=== PATIENT | male | born 1940 | race Caucasian/White ===

== ENCOUNTER 2018-11-15 07:11 | Inpatient (IN) | payer MEDICARE, OTHER ==
[2018-11-15 09:10] LABS: #Eosinphils 0.1 thou/uL (0.0-0.7); #Monocytes 0.9 thou/uL (0.11-0.59); #Neutrophils 8.5 thou/uL (1.40-6.50); %Basophils 0.3 % (0.0-1.0); %Eosinophils 0.7 % (0.0-10.0); %Lymphocytes 9.4 % (21.0-51.0); %Monocytes 8.1 % (0.0-10.0); %Neutrophils 81.5 % (42.0-75.0); Hemoglobin 14.7 g/dL (14.0-18.0); Mean Corpuscular HGB CONC 33.5 g/dL (32.0-36.0); Mean Corpuscular Hemoglobin 31.4 pg (27.0-31.0); Mean Corpuscular Volume 93.7 fL (78.0-98.0); Mean Platelet Volume 6.3 fL (7.4-10.4); Platelet Count 444 thou/uL (130-400); RBC Distribution Width 11.5 % (11.5-14.5); Red Blood Cell (RBC) Count 4.69 mill/uL (4.70-6.10); White Blood Cell (WBC) Count 10.4 thou/uL (4.8-10.8)
[2018-11-15] MEDS ORDERED: CEFAZOLIN 2 GM/50 ML BAG ONE (09:12)
[2018-11-15 09:29] LABS: Anion Gap 14 mmol/L (10-20); BUN (Urea Nitrogen) 15 mg/dL (8.4-25.7); Calc. Creatinine Clearance 73 mL/min (70-130); Calcium 9.4 mg/dL (7.8-10.44); Carbon Dioxide 29 mmol/L (23-31); Chloride 99 mmol/L (98-107); Estimated GFR-MDRD 74; Glucose 132 mg/dL (83-110); Potassium 3.9 mmol/L (3.5-5.1); Sodium 138 mmol/L (136-145)
[2018-11-15] MEDS ORDERED: Sodium Chloride 0.9% 10 ML ONE (10:53)
[2018-11-15] MEDS ORDERED: Fentanyl 100 MCG/2 ML VIAL ONE ×4 (11:09→13:54)
[2018-11-15] MEDS ORDERED: KETAMINE 100 MG/ML (5ML VIAL) ONE (11:29)
--- NOTE | 2018-11-15 12:54 | OP ---
DATE OF PROCEDURE: 11/15/2018 RETICLE PRINTER: Jonathon. PROCEDURES PERFORMED: Right L5-S1 laminectomy, facetectomy, and foraminotomy, posterolateral arthrodesis L5-S1, pedicle screw instrumentation, demineralized bone matrix, and local morselized autograft. DESCRIPTION OF PROCEDURE: The patient was brought to the operating room and intubated. He was rolled in the prone position on gel-filled chest rolls. An incision was made exposing L5 and S1 and the level was confirmed by x-ray. We performed a right L5-S1 laminectomy, facetectomy, and foraminotomy, and completely decompressed the right L5 neural foramen. We next placed pedicle screws at L5 and S1 bilaterally using lateral fluoroscopic guidance. Distraction was placed between the screws, connected by rods, which were connected by nuts. The wound was then extensively irrigated and maximum hemostasis was secured. A combination of demineralized bone matrix and local morselized autograft was laid over the lamina and posterolateral surfaces for the purpose of arthrodesis. Vancomycin powder was applied and the wound was then closed in anatomic layers. Job ID: [id number] [facility]
[2018-11-15] MEDS ORDERED: diphenhydrAMINE 25 MG CAP PO PRN (13:15)
[2018-11-15] MEDS ORDERED: traMADol HCl 50 MG TAB PO PRN ×2 (13:15)
[2018-11-15] MEDS ORDERED: Ondansetron PF 4 MG/2 ML Vial IM PRN (13:15)
[2018-11-15] MEDS ORDERED: Milk Of Magnesia 30 ML UDCUP PO PRN (13:15)
[2018-11-15] MEDS ORDERED: diphenhydrAMINE 50 MG/ML VIAL IVP PRN (13:15)
[2018-11-15] MEDS ORDERED: Mag-Al 1200 mg/1200 mg/30 ML UDCUP PO PRN (13:15)
[2018-11-15] MEDS ORDERED: Morphine 4 MG/ML VIAL SLOW IVP PRN ×2 (13:15→13:18)
[2018-11-15] MEDS ORDERED: Promethazine 25 MG TAB PO PRN (13:15)
[2018-11-15] MEDS ORDERED: Promethazine HCl 12.5 MG SUPP PR PRN (13:15)
[2018-11-15] MEDS ORDERED: Promethazine HCl 25 MG/ML VIAL IM PRN ×2 (13:15→13:30)
[2018-11-15] MEDS ORDERED: Acetaminophen/Codeine 30-300mg Tablet PO PRN (13:20)
[2018-11-15] MEDS ORDERED: Ondansetron HCl/PF 4 MG/2 ML Vial IVP PRN (13:30)
[2018-11-15] MEDS ORDERED: Promethazine HCl 25 MG/ML VIAL SLOW IVP PRN (13:30)
[2018-11-15] MEDS ORDERED: HYDROmorphone 2 MG/ML VIAL ONE (14:04)
[2018-11-15] MEDS ORDERED: Lidocaine 1% PF 5 ML VIAL ONE (15:08)
[2018-11-15] MEDS ORDERED: Glycopyrrolate 0.2 MG/ML 5 ML SYRINGE ONE (15:08)
[2018-11-15] MEDS ORDERED: PHENYLEPHRINE-NS 100 MCG/ML 10 ML SYRINGE ONE (15:08)
[2018-11-15] MEDS ORDERED: PROPOFOL 200 MG/20 ML VIAL ONE (15:08)
[2018-11-15] MEDS ORDERED: Ketorolac Tromethamine 30 MG/ML VIAL ONE (15:08)
[2018-11-15] MEDS ORDERED: Ondansetron PF 4 MG/2 ML Vial ONE (15:08)
[2018-11-15] MEDS ORDERED: Dexamethasone 20 MG/5 ML VIAL ONE (15:08)
[2018-11-15 16:17] VITALS: BMI 24.4
[2018-11-15] MEDS: Gabapentin 300 MG CAP PO SCH ×2 (17:00→20:34)
[2018-11-15] MEDS: CEFAZOLIN 2 GM/50 ML-DEXTROSE 2 GM in Premix Bag 1 BAG IVPB SCH (17:00)
[2018-11-15] MEDS: Sodium Chloride 0.9% 1,000 ML IV SCH (17:01)
--- NOTE | 2018-11-15 17:13 | EKG ---
Test Reason : PREOP Blood Pressure : / mmHG Vent. Rate : 075 BPM Atrial Rate : 075 BPM P-R Int : 142 ms QRS Dur : 096 ms QT Int : 418 ms P-R-T Axes : 070 067 023 degrees QTc Int : 466 ms Normal sinus rhythm Normal ECG When compared with ECG of 26-FEB-2011 15:20, QT has lengthened Confirmed by DR. Sunshine DRISCOLL ([id number]) on 11/15/2018 5:12:42 PM Referred By: PB Confirmed By:DR. Sunshine DRISCOLL
[2018-11-15] MEDS ORDERED: Senokot 8.6 MG TAB PO PRN (17:35)
[2018-11-15] MEDS ORDERED: [UNRECOGNIZED DRUG - OTHER] TOP SCH (18:15)
[2018-11-15] MEDS: Docusate 100 MG CAP PO SCH (20:34)
[2018-11-15] MEDS: guaiFENesin/DM ER PO SCH ×2 (20:35→20:36)
[2018-11-15] MEDS: Atorvastatin Calcium 40 MG TAB PO SCH (20:35)
[2018-11-15] MEDS: HYDROcodone/Acetaminophen 10/325 mg Tablet PO PRN (22:26)
[2018-11-15] MEDS: tiZANidine HCl 4 MG TAB PO PRN (22:26)
[2018-11-16] MEDS: CEFAZOLIN 2 GM/50 ML-DEXTROSE 2 GM in Premix Bag 1 BAG IVPB SCH
--- NOTE | 2018-11-16 00:31 | CON ---
DATE OF CONSULTATION: PRIMARY CARE PHYSICIAN: Dr. Mi. ADMITTING TEAM: Neurosurgery, Dr. Pineda. REASON FOR CONSULTATION: Medical management. HISTORY OF PRESENT ILLNESS: This is a 78-year-old white male with a history of low back pain progressing into right-sided sciatica over the last 3 months. This had progressed to where the patient was not able to sit at all for the last couple of months and it got severely worst just after Keisha and so the patient was seen at [facility] on November 07. He was treated for his pain and discharged, but it came right back and was eventually admitted on the to the hospital there. While in the hospital, he was diagnosed with pneumonia and treated with Levaquin, and he had multiple pain management regimens attempted. Eventually, he was able to be mildly controlled with fentanyl patch and some oral medications, and he was discharged on the to follow up with Dr. Pineda for a scheduled lumbar decompression today. The patient had his right-sided L5 through S1 laminectomy, facetectomy, foraminotomy, and posterolateral arthrodesis at L5 through S1 with screws placed and an autograft by Dr. Pineda. He is postoperative and is doing much better. He states he still has some pain in his back, but no more pain running down his right leg. The patient reports that he was very nauseated prior to coming in this morning, but that has resolved now as well. He also experienced significant constipation during his last hospitalization due to the morphine and other pain medications; this has eventually resolved and he has had soft bowel movements for the last couple of days. The patient reports that he had some fever and cough during his previous hospitalization. The fever has resolved; his cough has improved, though he had a good bit this morning when he woke up. Overall, he has been feeling much better. PAST MEDICAL HISTORY: 1. Hypertension. 2. Hyperlipidemia. 3. Gastroesophageal reflux disease. 4. Lumbar radiculopathy. PAST SURGICAL HISTORY: 1. Left torn rotator cuff surgery. 2. Left foot surgery for a Lisfranc fracture. 3. Lumbar decompression surgery today. SOCIAL HISTORY: The patient is . He smoked until 1986 and he has dip tobacco ever since; he uses a can about every 3 days. No regular alcohol use. FAMILY HISTORY: Positive for diabetes in his father and multiple family members with back problems. ALLERGIES: NO KNOWN DRUG ALLERGIES. CURRENT MEDICATIONS: 1. Tylenol With Codeine No. 3 as needed. 2. Amlodipine 10 mg daily. 3. Diclofenac 75 mg twice a day. 4. Fentanyl patch 75 mcg q.3 days; he has this in place right now, it was placed about 3 days ago. 5. Gabapentin 300 mg 3 times a day. 6. Mucinex DM 1 tablet every 12 hours. 7. Levofloxacin 500 mg daily. 8. Lisinopril 5 mg daily. 9. Omeprazole 40 mg daily. 10. Simvastatin 80 mg at night. 11. Tramadol 50 mg as needed. REVIEW OF SYSTEMS: CONSTITUTIONAL: No current fevers. See HPI. No weight changes. EYES: No double vision or blurred vision. 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 ENT: No congestion, drainage or sore throat currently. CARDIOVASCULAR: No chest pain. No palpitations or racing heart. PULMONARY: Coughing has markedly improved. No wheezing or chest tightness. No dyspnea. GASTROINTESTINAL: Nausea earlier, now resolved. No vomiting. No current constipation, though he has gotten constipated easily with pain medication, but no diarrhea. GENITOURINARY: No dysuria or hematuria. He does report some difficulty urinating ever since getting on all the medications. He is able to void after standing for a while just before I came into the room. MUSCULOSKELETAL: See HPI. SKIN: No rashes or other lesions are noted. NEUROLOGIC: He had a little bit of tingling in his right leg earlier that has gone now and he has occasional weakness in the right leg with activity ever since he started having the sciatica. PHYSICAL EXAMINATION: VITAL SIGNS: Blood pressure 167/74, pulse 66, respirations 18, temperature 98.0, O2 saturation 96% on room air. GENERAL: This is a well-developed, well-nourished white male, in no apparent distress. HEENT: Pupils are equal, round, and reactive to light. Oropharynx is clear without lesions, erythema, or exudate. NECK: Supple. No adenopathy. No thyroid nodules or enlargement. No JVD. HEART: Regular rate and rhythm. No murmurs, rubs, or gallops. LUNGS: Clear to auscultation bilaterally. No wheezes, crackles, or rhonchi. ABDOMEN: Soft, nontender to palpation. Normoactive bowel sounds. No hepatosplenomegaly or other masses. EXTREMITIES: No clubbing, cyanosis, or edema. SKIN: No rashes or other lesions noted. NEUROLOGIC: He has intact sensation in all extremities. Normal reflexes. No facial droop. PSYCHIATRIC: Alert and oriented x3. Normal mood and affect. LABORATORY DATA: CBC within normal limits. Basic metabolic panel within normal limits. ASSESSMENT: 1. Lumbar radiculopathy, status post decompression surgery by Dr. Pineda. 2. Pneumonia. Today is his 7th day of antibiotics. We can give him a single dose of Levaquin today and then will we will discontinue. 3. Hypertension. We will resume the patient's home blood pressure medications. 4. Gastroesophageal reflux disease. We will resume PPI. 5. Hyperlipidemia. We will resume the patient's statin. 6. Deep venous thrombosis prophylaxis. We will put the patient on SCDs while in bed. 7. Code status: I did discuss this with the patient; he is a full code. Should he be incapacitated, his would be his medical decision maker; her name is Yael Rahman. Job ID: [id number]
[2018-11-16] MEDS: HYDROcodone/Acetaminophen 10/325 mg Tablet PO PRN ×2 (07:26→11:50)
[2018-11-16] MEDS: tiZANidine HCl 4 MG TAB PO PRN (07:26)
--- NOTE | 2018-11-16 07:38 | PRG ---
DATE OF SERVICE: 11/16/2018 SUBJECTIVE: The patient is a 78-year-old male, status post L5-S1 decompression and fusion. Following surgery, he was transitioned to the Med/Surg Floor, where his pain was well controlled with p.o. medications, he does still have an element of right L5 radiculopathy, but he does report this is better than before surgery. No complaints of weakness. He reports he is voiding appropriately and is ambulated short distance, just to the bathroom a few times. No incisional drainage issues. The patient is sitting in the bed comfortably, in no acute distress. Awake, alert, and oriented x4. Free active range of motion of all extremities. No focal motor weakness or reflex asymmetry. Negative straight leg raise. Sensation intact to light touch. We will plan to continue to mobilize the patient today with assistance of Physical Therapy, also to continue to work on pain control and advancing the patient's diet. Upon initially, they were considering inpatient rehabilitation. At discharge, the patient is doing very well and we will have him work with PT again. I anticipate he may be able to go with Home Health in the next day or two. Job ID: [id number]
[2018-11-16] MEDS: Sodium Chloride 0.9% 1,000 ML IV SCH (09:09)
[2018-11-16] MEDS: Amlodipine 10 MG TAB PO SCH (09:10)
[2018-11-16] MEDS: guaiFENesin/DM ER PO SCH ×2 (09:11→20:40)
[2018-11-16] MEDS: Gabapentin 300 MG CAP PO SCH ×3 (09:11→20:40)
[2018-11-16] MEDS: Lisinopril 5 MG TAB PO SCH (09:11)
[2018-11-16] MEDS: Docusate 100 MG CAP PO SCH ×2 (09:11→20:40)
--- NOTE | 2018-11-16 11:55 | PDOC.EVN ---
Event Note - Event Note Event Note: received sign out from Sound team, will see patient for medical management
--- NOTE | 2018-11-16 12:16 | PDOC.FM ---
- Subjective Subjective: Today patient states he is feeling well better overall. Pain in the r leg is much improved from before surgery. He states he has some pain at the incision site, rates it at 5/10. He was able to walk twice around the 3rd floor. He has been eating and drinking without difficultly. He denies cough, sob, fevers, chills, or sweats. He is quite thankful to have had the surgery and looking forward to continued therapy. - Objective Vital Signs & Weight: Vital Signs (12 hours) Temp Pulse Resp BP BP Pulse Ox 11/16/18 11:55 98.7 F 88 12 138/64 98 11/16/18 09:11 71 166/77 H 11/16/18 09:10 71 166/77 H 11/16/18 07:35 98.6 F 71 12 166/77 H 96 11/16/18 03:42 99.2 F 75 18 117/66 96 Weight Weight 79.515 kg Result Diagrams: 11/15/18 08:59 11/15/18 08:59 Phys Exam - Physical Examination Constitutional: NAD HEENT: PERRLA, moist MMs Neck: no nodes, full ROM Respiratory: no wheezing, clear to auscultation bilateral Cardiovascular: RRR, no significant murmur Gastrointestinal: soft, non-tender, no distention, positive bowel sounds Musculoskeletal: no edema, pulses present Neurological: non-focal, moves all 4 limbs hospitality ambassador strength equal 5/5, able to raise both legs off bed, sensation intact equal 5/5 plantar flexion Psychiatric: normal affect, A&O x 3 Skin: no rash, cap refill <2 seconds Dx/Plan (1) HTN (hypertension) Code(s): I10 - ESSENTIAL (PRIMARY) HYPERTENSION Status: Acute (2) HLD (hyperlipidemia) Code(s): E78.5 - HYPERLIPIDEMIA, UNSPECIFIED Status: Acute (3) GERD (gastroesophageal reflux disease) Code(s): K21.9 - GASTRO-ESOPHAGEAL REFLUX DISEASE WITHOUT ESOPHAGITIS Status: Acute (4) Lumbar radiculopathy Code(s): M54.16 - RADICULOPATHY, LUMBAR REGION Status: Acute - Plan Plan: # Lumbar Radiculopathy s/p lumbar decompression - POD 1 - pain well-controlled - PT/OT # Pneumonia - s/p 7 days levoquin - no cough, sob, fever # HTN - home meds # HLD - home meds Code: full Fluids: tko Diet: regular Dispo: 1-2 days, anticipate rehab DVT PPx: SCDs Addendum - Attending - Attending Attestation Date/Time: 11/16/18 7625 I personally evaluated the patient and discussed the management with Dr. Dave I agree with the History, Examination, Assessment and Plan documented above with any addition or exceptions noted below. 78 yo male admitted for spinal decompression. POD#1 HD#2 He reports he is doing much better. Reports pain in controlled. Excited to eat today. Able to participate in physical therapy today. PMHX, SxHX, FamHX, SoHX, allergies, and home medications reviewed with patient and at bedside. ROS 9 point negative. VS reviewed. Labs reviewed. NAD. Laying in bed. EMOI. PERRL. AAO x4. MMM. Supple. No LAD. Nonpalpable thyroid. RRR. No murmurs. CTA bilaterally but patient not able sit up comfortably in bed for full lung exam. NT/ND. BS present. No guarding. FROM. No c/c/e x4 5/5 strength x 4. Gross sensation intact. CN II - XII intact. 1. s/p spinal decompression: Management per neurosurg. Would add bowel regiment due to use of narcotics for pain control. 2. HTN: Home meds restarted. Occasional severe range BPs but average normotensive. Continue to monitor. Adjust home meds as needed. 3. HLD: Continue home meds. 4. hx of GERD: H2 jacque as needed. PPI if not improved. Monitor NSAID use. 5. DVT ppx: Lovenox, ambulation, SCDs Dispo: Continue to monitor and follow alongside neuro ABrayMD
[2018-11-16] MEDS: Atorvastatin Calcium 40 MG TAB PO SCH (20:40)
[2018-11-16] MEDS: Acetaminophen/Codeine 30-300mg Tablet PO PRN (20:49)
[2018-11-17] MEDS: HYDROcodone/Acetaminophen 10/325 mg Tablet PO PRN ×3 (04:49→14:39)
--- NOTE | 2018-11-17 06:40 | PDOC.FM ---
- Subjective Subjective: This mornign patient states he is having mild pain at incision site, as well as some pain radiating down his R leg. Pain is less than before the surgery. Patient was able to walk around 3rd floor x2 yesterday. Denies sob, cough, fevers, chills, sweats, N/V/D. - Objective Vital Signs & Weight: Vital Signs (12 hours) Temp Pulse Resp BP Pulse Ox 11/17/18 04:00 99 F 70 19 143/80 H 97 11/17/18 00:00 99.7 F H 85 19 131/68 95 11/16/18 20:40 98 11/16/18 20:00 98.9 F 84 20 144/68 H 98 Weight Weight 79.515 kg I&O: 11/15/18 11/16/18 11/17/18 06:59 06:59 06:59 Intake Total 2130 Output Total 550 Balance 1580 Result Diagrams: 11/15/18 08:59 11/15/18 08:59 Phys Exam - Physical Examination Constitutional: NAD HEENT: PERRLA, moist MMs Respiratory: no wheezing, clear to auscultation bilateral Cardiovascular: RRR, no significant murmur Gastrointestinal: soft, non-tender, no distention, positive bowel sounds Musculoskeletal: no edema, edema present Neurological: non-focal, moves all 4 limbs 5/5 plantar flexion bilaterally Psychiatric: normal affect, A&O x 3 Skin: no rash, cap refill <2 seconds Dx/Plan (1) HTN (hypertension) Code(s): I10 - ESSENTIAL (PRIMARY) HYPERTENSION Status: Acute (2) HLD (hyperlipidemia) Code(s): E78.5 - HYPERLIPIDEMIA, UNSPECIFIED Status: Acute (3) GERD (gastroesophageal reflux disease) Code(s): K21.9 - GASTRO-ESOPHAGEAL REFLUX DISEASE WITHOUT ESOPHAGITIS Status: Acute (4) Lumbar radiculopathy Code(s): M54.16 - RADICULOPATHY, LUMBAR REGION Status: Acute - Plan Plan: # Lumbar Radiculopathy s/p lumbar decompression - POD 2 - pain well-controlled - PT/OT # Pneumonia - s/p 7 days levoquin - no cough, sob, fever # HTN - home meds - mildly elevated overnight to 140s systolic, will hold off on adjustments for now # HLD - home meds Code: full Fluids: tko Diet: regular Dispo: 1-2 days, anticipate rehab DVT PPx: SCDs Addendum - Attending - Attending Attestation Date/Time: 11/17/18 1021 I personally evaluated the patient and discussed the management with Dr. Dave. I agree with the History, Examination, Assessment and Plan documented above with any addition or exceptions noted below. Patient here s/p spinal decompression with NSGY. We are consulted for medical mgmt. BP well controlled on current meds, will adjust as necessary. Continue to follow and make recommendations as needed. Continue PT and dispo per the primary team.
[2018-11-17] MEDS: Docusate 100 MG CAP PO SCH ×2 (08:55→21:23)
[2018-11-17] MEDS: guaiFENesin/DM ER PO SCH ×2 (08:56→21:23)
[2018-11-17] MEDS: Gabapentin 300 MG CAP PO SCH ×3 (08:56→21:23)
[2018-11-17] MEDS: Lisinopril 5 MG TAB PO SCH (08:56)
[2018-11-17] MEDS: Amlodipine 10 MG TAB PO SCH (08:57)
[2018-11-17] MEDS: Acetaminophen/Codeine 30-300mg Tablet PO PRN (21:23)
[2018-11-17] MEDS: Atorvastatin Calcium 40 MG TAB PO SCH (21:23)
[2018-11-18] MEDS: HYDROcodone/Acetaminophen 10/325 mg Tablet PO PRN ×2 (06:13→11:36)
--- NOTE | 2018-11-18 06:56 | PDOC.FM ---
- Subjective Subjective: This morning patient states he is having some increased pain in the right leg. He was able to walk all the way around 3rd floor without issues. He has more pain when laying down than walking, walking actually relieves the pain. Pain is well-managed with norco. Patient states he is ready to go to [place] for swingbed care. - Objective Vital Signs & Weight: Vital Signs (12 hours) Temp Pulse Resp BP Pulse Ox 11/18/18 04:00 97.5 F L 56 L 17 119/68 95 11/18/18 00:00 98.8 F 63 19 136/73 96 11/17/18 20:33 96 11/17/18 20:00 99.4 F 71 20 123/71 97 Weight Weight 79.515 kg I&O: 11/16/18 11/17/18 11/18/18 06:59 06:59 06:59 Intake Total 2130 1200 Output Total 550 Balance 1580 1200 Result Diagrams: 11/15/18 08:59 11/15/18 08:59 Phys Exam - Physical Examination Constitutional: NAD HEENT: PERRLA Respiratory: no wheezing, clear to auscultation bilateral Cardiovascular: RRR, no significant murmur Gastrointestinal: soft, non-tender, no distention, positive bowel sounds Musculoskeletal: no edema, pulses present Neurological: non-focal, moves all 4 limbs Psychiatric: normal affect, A&O x 3 Skin: no rash, cap refill <2 seconds Dx/Plan (1) HTN (hypertension) Code(s): I10 - ESSENTIAL (PRIMARY) HYPERTENSION Status: Acute (2) HLD (hyperlipidemia) Code(s): E78.5 - HYPERLIPIDEMIA, UNSPECIFIED Status: Acute (3) GERD (gastroesophageal reflux disease) Code(s): K21.9 - GASTRO-ESOPHAGEAL REFLUX DISEASE WITHOUT ESOPHAGITIS Status: Acute (4) Lumbar radiculopathy Code(s): M54.16 - RADICULOPATHY, LUMBAR REGION Status: Acute - Plan Plan: # Lumbar Radiculopathy s/p lumbar decompression - POD 3 - pain well-controlled - PT/OT # Pneumonia - s/p 7 days levoquin - no cough, sob, fever # HTN - home meds - WNL overnight # HLD - home meds Code: full Fluids: tko Diet: regular Dispo: plans to go to [facility] for swingbed today per patient DVT PPx: SCDs Addendum - Attending - Attending Attestation Date/Time: 11/18/18 2440 I personally evaluated the patient and discussed the management with Dr. Dave. I agree with the History, Examination, Assessment and Plan documented above with any addition or exceptions noted below. Patient seen as consult for med mgmt. Doing well and BP stable. Dispo per primary team.
[2018-11-18 08:26] VITALS: BP 147/79; TEMP 98.1
[2018-11-18] MEDS: Lisinopril 5 MG TAB PO SCH (08:55)
[2018-11-18] MEDS: Amlodipine 10 MG TAB PO SCH (08:55)
[2018-11-18] MEDS: Gabapentin 300 MG CAP PO SCH (08:55)
[2018-11-18] MEDS: Docusate 100 MG CAP PO SCH (08:55)
[2018-11-18] MEDS: guaiFENesin/DM ER PO SCH (08:55)
--- NOTE | 2018-11-18 12:57 | DIS ---
DATE OF ADMISSION: 11/15/2018 DATE OF DISCHARGE: 11/18/2018 HOSPITAL COURSE: The patient is a 78-year-old male, status post L5 to S1 decompression and fusion. Following the surgery, he was transitioned to the Med/Surg floor, where his pain has been well controlled with p.o. medications, he has been tolerating a regular diet, and voiding appropriately. He has been up and ambulating with the assistance of Physical Therapy and the nursing staff. He has some intermittent right leg radicular pain, which is well controlled with medication, then appears to be improving with time. This morning, the patient is sitting up. He is awake, alert, in no acute distress. He has free active range of motion of all extremities. 5/5 strength throughout. Normal reflexes throughout. He has a negative straight leg raise on the right and no contralateral straight leg raise. Sensation is intact to light touch. We will plan to dismiss the patient to halfway facility later today. I have discussed home care and provided the patient with instructions. He has also been provided with prescriptions for pain, muscle relaxer as well as antibiotics. We will follow up with the patient in approximately 2 weeks. Job ID: [id number]
== END 2018-11-18 11:41 | DRG 459 ==
LOC: SURG A 08:05
PROVIDERS: ADMIT Neurological Surgery; ATTEND Neurological Surgery
PROC: 0SG3071 Fusion of Lumbosacral Joint with Autologous Tissue Substitute, Posterior Approach, Posterior Column, Open Approach (ICD-10-PCS; principal; 2018-11-15)
DX: M54.16 Radiculopathy, lumbar region (principal); J18.9 Pneumonia, unspecified organism; I10 Essential (primary) hypertension; K21.9 Gastro-esophageal reflux disease without esophagitis; E78.5 Hyperlipidemia, unspecified; Z98.890 Other specified postprocedural states; Z87.891 Personal history of nicotine dependence; Z79.899 Other long term (current) drug therapy
CPT/HCPCS: 36415; 76000; 80048; 85025; 93005; 93010; C1713; C1768; J1100; J1170; J1885; J2001; J2405; J2704; J3010; J3370; J3490

== ENCOUNTER 2018-11-30 15:50 | Outpatient (CLI) | payer MEDICARE, OTHER ==
--- NOTE | 2018-11-30 17:14 | RAD ---
LUMBAR SPINE TWO VIEWS: 11/30/18 HISTORY: Followup surgery. The bones appear demineralized. Vertebral bodies are normal in height. There is degenerative disc david rowing at L5-S1. Bilateral pedicle screws are also present at this level. There are moderate atherosc lerotic changes seen. The bones are diffusely demineralized. IMPRESSION: Postoperative changes and arthritic changes of the spine. POS: JENNIFER
== END 2018-11-30 15:51 | disposition home or self-care (01) ==
LOC: TBSIIMAG 15:50
PROVIDERS: ATTEND Neurological Surgery
DX: M47.26 Other spondylosis with radiculopathy, lumbar region (principal); Z98.890 Other specified postprocedural states
CPT/HCPCS: 72100

== ENCOUNTER 2019-01-11 15:08 | Outpatient (CLI) | payer MEDICARE, OTHER ==
--- NOTE | 2019-01-11 15:58 | RAD ---
LUMBAR SPINE TWO VIEW 01/11/19 HISTORY: M54.16, followup surgery. COMPARISON: Lumbar spine radiograph 11/28/18. FINDINGS: Posterior spinal fusion hardware at L5-S1. Moderate narrowing of L5-S1 disc spaces. No evidence for hardware fracture. Phleboliths in the pelvis. There appear to be numerous calcified granulomas projecting over the expected location of the liver. Dense vascular calcifications of the aorta. IMPRESSION: Degenerative changes. Unchanged appearance of the L5-S1 posterior fusion hardware. POS: JENNIFER
== END 2019-01-11 15:09 | disposition home or self-care (01) ==
LOC: TBSIIMAG 15:08
PROVIDERS: ATTEND Neurological Surgery
DX: M47.26 Other spondylosis with radiculopathy, lumbar region (principal); Z98.1 Arthrodesis status
CPT/HCPCS: 72100

== ENCOUNTER 2019-06-15 08:15 | Day surgery (SDC) | payer MEDICARE, OTHER ==
[2019-06-14 08:32] VITALS: BMI 25.5
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
[2019-06-15] MEDS ORDERED: ePHEDrine/0.9% NaCl/PF SYRINGE 50 mg/10 ml ONE (11:41)
--- NOTE | 2019-06-15 11:49 | OP ---
DATE OF PROCEDURE: 06/15/2019 PROCEDURE PERFORMED: Colonoscopy. PREOPERATIVE DIAGNOSIS: A 78-year-old male, undergoing colonoscopy for colon cancer screening. POSTOPERATIVE DIAGNOSES: 1. Left-sided diverticular disease. 2. Hemorrhoids. DESCRIPTION OF PROCEDURE: The patient was placed on his left lateral position and was given sedation by Anesthesia Department. A rectal exam was done before the scope was advanced into the rectum. No lesions felt on rectal exam. A Pentax video colonoscope was introduced into the rectum and advanced all the way into the cecum. The patient had a redundant, tortuous colon. The mucosa appears normal throughout the colon. The appendiceal orifice, ileocecal wall, and cecum, no pathology. Withdrawal of scope in the cecum, ascending colon, hepatic flexure, no pathology. The transverse colon and splenic flexure, no lesion. The sigmoid colon and descending colon showed scattered diverticula. The rectum showed hemorrhoids. Job ID: [id number]
--- NOTE | 2019-06-15 12:12 | OP ---
DATE OF PROCEDURE: 06/15/2019 OPERATIVE PROCEDURE: Esophagogastroduodenoscopy with biopsy. PREOPERATIVE DIAGNOSIS: A 78-year-old male with longstanding acid reflux for more than 10 years. The patient is undergoing esophagogastroduodenoscopy. POSTOPERATIVE DIAGNOSES: 1. Linear ulceration over the distal esophagus with normal mucosa. 2. Moderate size hiatal hernia. 3. Normal stomach and duodenum. DESCRIPTION OF PROCEDURE: The patient was placed on his left lateral position and was given sedation by Anesthesia. A Pentax video gastroscope under direct vision was passed down into the oropharynx, past the GE junction into the stomach and subsequently into the descending duodenum. The esophageal mucosa appeared normal through the esophagus. Over the distal esophagus, the patient was found to have a 1 cm in size bleeding ulceration. The mucosa appeared normal. Biopsy was obtained from this area. There was a moderate size hiatal hernia. Retroflexion failed to show any pathology in fundus or cardia. In the gastric body, gastric antrum, no pathology seen. In the duodenal bulb, descending duodenum, no pathology seen. The stomach was decompressed and the scope removed. DISCHARGE PLANNING: This is a 78-year-old male, underwent EGD and colonoscopy because of longstanding acid reflux and also for colon cancer screening. He was found to have hiatal hernia and also ulceration in the distal esophagus. The colonoscopy showed left-sided diverticula and hemorrhoids. DISCHARGE RECOMMENDATION: 1. The patient advised to call me if he develops abdominal pain, hematochezia. 2. High-fiber diet. 3. To come back to clinic in 2 weeks. Job ID: [id number]
== END 2019-06-15 12:30 | disposition home or self-care (01) ==
LOC: SDC 08:15
PROVIDERS: ATTEND Internal Medicine Gastroenterology
PROC: 0DJD8ZZ Inspection of Lower Intestinal Tract, Via Natural or Artificial Opening Endoscopic (ICD-10-PCS; principal; 2019-06-15)
PROC: 0DB38ZX Excision of Lower Esophagus, Via Natural or Artificial Opening Endoscopic, Diagnostic (ICD-10-PCS; 2019-06-15)
DX: Z12.11 Encounter for screening for malignant neoplasm of colon (principal); Q43.8 Other specified congenital malformations of intestine; K57.30 Diverticulosis of large intestine without perforation or abscess without bleeding; K64.9 Unspecified hemorrhoids; K21.0 Gastro-esophageal reflux disease with esophagitis; K44.9 Diaphragmatic hernia without obstruction or gangrene; I10 Essential (primary) hypertension; E78.5 Hyperlipidemia, unspecified; Z98.890 Other specified postprocedural states; Z79.899 Other long term (current) drug therapy
CPT/HCPCS: 43239; G0121; 88305; 88312; 88313

== ENCOUNTER 2020-04-13 10:02 | Outpatient (CLI) | payer MEDICARE, OTHER ==
--- NOTE | 2020-04-13 11:15 | ULT ---
ULTRASOUND RETROPERITONEUM LIMITED: (ABDOMINAL AORTA) DATE: 04/13/2020 HISTORY: 79-year-old male with hypertension presents for follow-up of abdominal aortic aneurysm. COMPARISON: 08/17/2019 FINDINGS: There is diffuse atherosclerotic calcified plaque throughout the abdominal aorta. There is a fusiform distal infrarenal abdominal aortic aneurysm which measures approximately 4 cm in AP dimension. There has been no major interval change since 08/17/2019, allowing for mild variability in placement o f measurement cursors. Again noted is the calcified chronic mural plaque and/or chronic dissection within the aneurysm. IMPRESSION: Fusiform distal infrarenal abdominal aortic aneurysm, without convincing evidence of interval change.
--- NOTE | 2020-04-13 11:27 | ULT ---
BILATERAL CAROTID DUPLEX ULTRASOUND: DATE: 04/13/2020 HISTORY: TIA. Hypertension. TECHNIQUE: Finney scale ultrasound with color flow and spectral Doppler imaging of the extracranial carotid artery systems performed bilaterally. FINDINGS: There is plaque formation on both sides. The peak systolic velocity in the right ICA measures 130 cm/second. The peak systolic velocity in the left ICA measures 90 cm/second. Flow in both vertebral arteries remains antegrade. IMPRESSION: No evidence of hemodynamically significant stenosis in either ICA. POS: [facility]
== END 2020-04-13 10:03 | disposition home or self-care (01) ==
LOC: BICULT 10:02
PROVIDERS: ATTEND Internal Medicine
DX: G45.9 Transient cerebral ischemic attack, unspecified (principal); I71.4 Abdominal aortic aneurysm, without rupture; I10 Essential (primary) hypertension; I08.1 Rheumatic disorders of both mitral and tricuspid valves
CPT/HCPCS: 76706; 93306; 93880

== ENCOUNTER 2021-08-08 19:00 | Outpatient (CLI) | payer MEDICARE, OTHER | END 2021-08-08 19:01 | disposition home or self-care (01) | LOC: SLEEPLAB 19:00 | PROVIDERS: ATTEND Internal Medicine Cardiovascular Disease | DX: G47.33 Obstructive sleep apnea (adult) (pediatric) (principal); F51.9 Sleep disorder not due to a substance or known physiological condition, unspecified; I48.91 Unspecified atrial fibrillation; R06.83 Snoring; G47.10 Hypersomnia, unspecified; I10 Essential (primary) hypertension; G47.31 Primary central sleep apnea; E66.9 Obesity, unspecified; Z68.25 Body mass index [BMI] 25.0-25.9, adult | CPT/HCPCS: 95811 ==

== ENCOUNTER 2022-03-03 09:17 | Outpatient (CLI) | payer MEDICARE, OTHER ==
[2022-03-03 10:59] LABS: Hemoglobin 14.4 g/dL (13.5-17.5); Mean Corpuscular HGB CONC 33.3 g/dL (32.0-36.0); Mean Corpuscular Hemoglobin 30.4 pg (27.0-33.0); Mean Corpuscular Volume 91.3 fl (81.2-95.1); Mean Platelet Volume 9.3 fl (7.4-10.4); Platelet Count 317 10x3/uL (150-450); RBC Distribution Width 13.1 % (11.5-14.5); Red Blood Cell (RBC) Count 4.73 10x6/uL (4.32-5.72); White Blood Cell (WBC) Count 5.8 10x3/uL (3.5-10.5)
[2022-03-03 11:11] LABS: INR-International Normal Ratio 0.9; Prothrombin Time 10.3 sec (9.5-12.1)
[2022-03-03 11:23] LABS: Anion Gap 13 mmol/L (10-20); BUN (Urea Nitrogen) 15 mg/dL (8.4-25.7); Calc. Creatinine Clearance 0 mL/min (70-130); Carbon Dioxide 25 mmol/L (23-31); Chloride 104 mmol/L (98-107); Glucose 120 mg/dL (83-110); Potassium 4.2 mmol/L (3.5-5.1); Sodium 138 mmol/L (136-145)
[2022-03-03 23:30] LABS: SARS-CoV-2 PCR by NAA Not Detected (NotDetected)
== END 2022-03-03 09:18 | disposition home or self-care (01) ==
LOC: LABBT 09:17
PROVIDERS: ATTEND Specialist
DX: Z01.812 Encounter for preprocedural laboratory examination (principal); Z20.822 Contact with and (suspected) exposure to COVID-19
CPT/HCPCS: 80048; 85027; 85610; U0003; U0005

== ENCOUNTER 2022-03-06 06:12 | Day surgery (SDC) | payer MEDICARE, OTHER ==
[2022-03-03 14:47] VITALS: BMI 27.2
[2022-03-06] MEDS ORDERED: Heparin 25,000 units/D5W 500 ML ONE (06:42)
[2022-03-06] MEDS ORDERED: Heparin 10,000 UNITS/ 10 ML VIAL ONE (06:42)
[2022-03-06] MEDS ORDERED: Protamine Sulfate 50 MG/5 ML VIAL ONE (06:42)
[2022-03-06] MEDS ORDERED: Midazolam HCl 2 mg/2 ml Vial ONE (06:53)
[2022-03-06] MEDS ORDERED: ePHEDrine 50 MG/ML VIAL ONE (07:49)
[2022-03-06] MEDS ORDERED: Glycopyrrolate 0.2 MG/ML 5 ML SYRINGE ONE (07:49)
[2022-03-06] MEDS ORDERED: Dexamethasone 20 MG/5 ML VIAL ONE (07:49)
[2022-03-06] MEDS ORDERED: PHENYLEPHRINE-NS 100 MCG/ML 10 ML SYRINGE ONE (07:49)
[2022-03-06] MEDS ORDERED: Ondansetron PF 4 MG/2 ML Vial ONE (07:49)
[2022-03-06] MEDS ORDERED: Lidocaine 1% PF 5 ML VIAL ONE (07:49)
[2022-03-06] MEDS ORDERED: PROPOFOL 200 MG/20 ML VIAL ONE (07:49)
[2022-03-06] MEDS ORDERED: Rocuronium Bromide 10 MG/ML (10ML VIAL) ONE (07:49)
[2022-03-06] MEDS ORDERED: Promethazine HCl 25 MG/ML VIAL IVPB PRN (10:46)
[2022-03-06] MEDS ORDERED: Promethazine HCl 25 MG/ML VIAL IM PRN (10:46)
[2022-03-06] MEDS ORDERED: Ondansetron HCl/PF 4 MG/2 ML Vial IVP PRN (10:46)
== END 2022-03-06 13:45 | disposition home or self-care (01) ==
LOC: SDC 06:12
PROVIDERS: ATTEND Internal Medicine Cardiovascular Disease
PROC: B246ZZ4 Ultrasonography of Right and Left Heart, Transesophageal (ICD-10-PCS; principal; 2022-03-06)
PROC: 02583ZZ Destruction of Conduction Mechanism, Percutaneous Approach (ICD-10-PCS; 2022-03-06)
PROC: 02K83ZZ Map Conduction Mechanism, Percutaneous Approach (ICD-10-PCS; 2022-03-06)
PROC: B244ZZZ Ultrasonography of Right Heart (ICD-10-PCS; 2022-03-06)
DX: I48.0 Paroxysmal atrial fibrillation (principal); I11.9 Hypertensive heart disease without heart failure; I70.0 Atherosclerosis of aorta; E78.5 Hyperlipidemia, unspecified; I73.9 Peripheral vascular disease, unspecified; G47.33 Obstructive sleep apnea (adult) (pediatric); Z86.73 Personal history of transient ischemic attack (TIA), and cerebral infarction without residual deficits; Z87.891 Personal history of nicotine dependence; Z79.01 Long term (current) use of anticoagulants; Z79.899 Other long term (current) drug therapy; Z98.1 Arthrodesis status
CPT/HCPCS: 85347 ×2; 93005; 93312; 93613; 93655; 93656; 93662; C1730; C1731; C1732; C1759; C1894; C2630; J1100; J1644; J2250; J2405; J2704; J2720; J3490

== ENCOUNTER 2022-10-28 15:00 | Outpatient (CLI) | payer MEDICARE, OTHER ==
[2022-10-28 16:10] LABS: Hemoglobin 14.6 g/dL (13.5-17.5); Mean Corpuscular Hemoglobin 30.7 pg (27.0-33.0); Mean Corpuscular Volume 90.3 fl (81.2-95.1); Mean Platelet Volume 9.4 fl (7.4-10.4); Platelet Count 264 10x3/uL (150-450); RBC Distribution Width 13.5 % (11.5-14.5); Red Blood Cell (RBC) Count 4.75 10x6/uL (4.32-5.72); White Blood Cell (WBC) Count 6.8 10x3/uL (3.5-10.5)
[2022-10-28 16:29] LABS: Anion Gap 14 mmol/L (10-20); BUN (Urea Nitrogen) 16 mg/dL (8.4-25.7); Calc. Creatinine Clearance 0 mL/min (70-130); Calcium 9.7 mg/dL (7.8-10.44); Carbon Dioxide 24 mmol/L (23-31); Chloride 105 mmol/L (98-107); Estimated GFR 59; Glucose 109 mg/dL (83-110); Potassium 4.5 mmol/L (3.5-5.1); Sodium 138 mmol/L (136-145)
== END 2022-10-28 15:01 | disposition home or self-care (01) ==
LOC: LABBT 15:00
PROVIDERS: ATTEND Thoracic Surgery (Cardiothoracic Vascular Surgery)
DX: Z01.812 Encounter for preprocedural laboratory examination (principal); I73.9 Peripheral vascular disease, unspecified
CPT/HCPCS: 80048; 85027

== ENCOUNTER 2022-10-28 15:00 | Inpatient (IN) | payer MEDICARE, OTHER ==
[2022-10-29 08:47] LABS: SARS-CoV-2 NAA Rapid Test Not Detected (NotDetected)
[2022-10-29] MEDS ORDERED: Fentanyl 250 MCG/5 ML VIAL ONE (08:57)
[2022-10-29] MEDS ORDERED: Heparin 5,000 UNITS/ML VIAL ONE (09:19)
[2022-10-29] MEDS ORDERED: Bupivacaine HCl 0.5%/Epinephrine 1:200,000/PF 30 ml Vial ONE (09:19)
[2022-10-29] MEDS ORDERED: Protamine Sulfate 50 MG/5 ML VIAL ONE (09:19)
[2022-10-29] MEDS ORDERED: Lidocaine 2% PF 5 ML VIAL ONE (09:35)
[2022-10-29] MEDS ORDERED: Lidocaine 1% (PF) 30 ML VIAL ONE (09:36)
[2022-10-29] MEDS ORDERED: Midazolam HCl 2 mg/2 ml Vial ONE (10:05)
[2022-10-29] MEDS ORDERED: CEFAZOLIN 2 GM VIAL ONE (10:14)
[2022-10-29] MEDS ORDERED: Sodium Chloride 0.9% 100 ML ONE (10:14)
[2022-10-29] MEDS ORDERED: Dexamethasone 20 MG/5 ML VIAL ONE (10:31)
[2022-10-29] MEDS ORDERED: Rocuronium Bromide 10 MG/ML (10ML VIAL) ONE (10:31)
[2022-10-29] MEDS ORDERED: Lidocaine 1% PF 5 ML VIAL ONE (10:31)
[2022-10-29] MEDS ORDERED: Glycopyrrolate 0.2 MG/ML 5 ML SYRINGE ONE (10:31)
[2022-10-29] MEDS ORDERED: Ondansetron PF 4 MG/2 ML Vial ONE (10:31)
[2022-10-29] MEDS ORDERED: NEOSTIGMINE 3 MG/3 ML SYR 3 MG/3 ML SYRINGE ONE (10:31)
[2022-10-29] MEDS ORDERED: PROPOFOL 200 MG/20 ML VIAL ONE (10:31)
[2022-10-29] MEDS ORDERED: Phenylephrine 10 MG/ML VIAL ONE (11:00)
[2022-10-29] MEDS ORDERED: Ondansetron HCl/PF 4 MG/2 ML Vial IVP PRN (13:25)
[2022-10-29] MEDS ORDERED: Morphine Sulfate 2 MG/ML SYRINGE SLOW IVP PRN (13:25)
[2022-10-29] MEDS ORDERED: Promethazine HCl 25 MG/ML VIAL IVPB PRN (13:25)
[2022-10-29] MEDS ORDERED: Promethazine HCl 25 MG/ML VIAL IM PRN (13:25)
[2022-10-29] MEDS ORDERED: traMADol HCl 50 MG TAB PO PRN ×2 (13:26)
[2022-10-29] MEDS ORDERED: Non-Formulary Item 1 EACH (Fluticasone Propionate [Flovent Diskus] 50 MCG Blst.W.Dev) INH PRN (13:26)
[2022-10-29] MEDS ORDERED: Acetaminophen 325 MG TAB PO PRN (13:26)
[2022-10-29] MEDS ORDERED: Ondansetron PF 4 MG/2 ML Vial IVP PRN (13:26)
[2022-10-29] MEDS ORDERED: Sodium Chloride 0.9% 1,000 ML IV SCH (13:30)
[2022-10-29] MEDS ORDERED: FENTANYL 50 MCG/ML 1 ML VIAL SLOW IVP PRN (13:33)
[2022-10-29] MEDS ORDERED: Fentanyl 100 MCG/2 ML VIAL ONE ×2 (13:38→14:20)
[2022-10-29 15:15] VITALS: BMI 27.1
[2022-10-29] MEDS: CEFAZOLIN 2 GM in Sodium Chloride 0.9% 100 ML IVPB SCH ×2 (16:42→21:15)
[2022-10-29] MEDS ORDERED: Tamsulosin HCl 0.4 MG CAP PO SCH (21:00)
[2022-10-29] MEDS ORDERED: Amlodipine 10 MG TAB PO SCH (21:00)
[2022-10-29] MEDS ORDERED: Atorvastatin Calcium 40 MG TAB PO SCH (21:00)
[2022-10-30] MEDS: CEFAZOLIN 2 GM in Sodium Chloride 0.9% 100 ML IVPB SCH (05:01)
[2022-10-30 07:30] LABS: #Lymphocytes 0.9 thou/uL (1.20-3.40); #Monocytes 1.2 thou/uL (0.11-0.59); #Neutrophils 11.7 thou/uL (1.40-6.50); %Basophils 0.3 % (0.0-1.0); %Eosinophils 0.1 % (0.0-10.0); %Lymphocytes 6.6 % (21.0-51.0); %Monocytes 8.3 % (0.0-10.0); %Neutrophils 84.7 % (42.0-75.0); Hemoglobin 14.2 g/dL (14.0-18.0); Mean Corpuscular HGB CONC 32.2 g/dL (32.0-36.0); Mean Corpuscular Hemoglobin 31.1 pg (27.0-31.0); Mean Corpuscular Volume 96.4 fl (78.0-98.0); Mean Platelet Volume 7.1 fL (7.4-10.4); Platelet Count 269 10x3/uL (130-400); RBC Distribution Width 12.2 % (11.5-14.5); Red Blood Cell (RBC) Count 4.58 mill/uL (4.70-6.10); White Blood Cell (WBC) Count 13.8 10x3/uL (4.8-10.8)
[2022-10-30 07:40] LABS: Anion Gap 15 mmol/L (10-20); BUN (Urea Nitrogen) 15 mg/dL (8.4-25.7); Calc. Creatinine Clearance 73 mL/min (70-130); Calcium 8.9 mg/dL (7.8-10.44); Carbon Dioxide 22 mmol/L (23-31); Chloride 103 mmol/L (98-107); Estimated GFR 79; Glucose 161 mg/dL (83-110); Sodium 135 mmol/L (136-145)
[2022-10-30] MEDS ORDERED: Lisinopril 5 MG TAB PO SCH (09:00)
[2022-10-30] MEDS ORDERED: Polyethylene Glycol 3350 17 GM Packet PO SCH (09:00)
[2022-10-30] MEDS ORDERED: Aspirin Chewable 81 MG TAB PO SCH (09:00)
[2022-10-30] MEDS ORDERED: Clopidogrel Bisulfate 75 MG TAB PO SCH (09:00)
[2022-10-30 17:30] VITALS: BP 135/73; TEMP 98.2
== END 2022-10-30 17:25 | disposition home or self-care (01) | DRG 272 ==
LOC: SURG A 10-29 07:52 → SJJU 10-29 15:31
PROVIDERS: ADMIT Thoracic Surgery (Cardiothoracic Vascular Surgery); ATTEND Thoracic Surgery (Cardiothoracic Vascular Surgery)
PROC: 04CK3ZZ Extirpation of Matter from Right Femoral Artery, Percutaneous Approach (ICD-10-PCS; principal; 2022-10-29)
PROC: 047F3DZ Dilation of Left Internal Iliac Artery with Intraluminal Device, Percutaneous Approach (ICD-10-PCS; 2022-10-29)
PROC: B41D1ZZ Fluoroscopy of Aorta and Bilateral Lower Extremity Arteries using Low Osmolar Contrast (ICD-10-PCS; 2022-10-29)
DX: I70.213 Atherosclerosis of native arteries of extremities with intermittent claudication, bilateral legs (principal); I48.0 Paroxysmal atrial fibrillation; I10 Essential (primary) hypertension; E78.5 Hyperlipidemia, unspecified; Z79.899 Other long term (current) drug therapy; Z79.01 Long term (current) use of anticoagulants; Z82.3 Family history of stroke; Z82.49 Family history of ischemic heart disease and other diseases of the circulatory system; Z83.3 Family history of diabetes mellitus; Z98.890 Other specified postprocedural states
CPT/HCPCS: 36415; 36416; 80048; 85025; C1725; C1768; C1769; J1100; J1610; J1642; J1644; J2001; J2250; J2370; J2405; J2704; J2720; J3010; J3490; J7050; U0002